=== PATIENT | female | born 1980 | race Caucasian/White ===

== ENCOUNTER 2017-08-10 16:43 | Emergency (ER) | payer OTHER ==
[2017-08-10 16:56] VITALS: BP 129/89
[2017-08-10] MEDS ORDERED: SULFAMETHOX/TMP 800/160 MG 1 TAB PO ONE (17:31)
--- NOTE | 2017-08-10 17:31 | EDPHY ---
H & P Stated Complaint: r 3rd digit inf/concerned about tendon sheath snyovitis Time Seen by Provider: 08/10/17 17:20 HPI/ROS: HPI: This is a 37-year-old female who presents with Chief Complaint: r 3rd digit inf/concerned about tendon sheath snyovitis Location: Right 3rd digit Quality: Infection Duration: 5 days Signs and Symptoms: No bleeding, no radiation, no numbness, no weakness, no tingling, no incontinence, no decreased range of motion, + swelling, + pain, no fever Timing: Worsening Severity: Moderate Context: Patient is right-hand dominant, presents from urgent care with concerns of right 3rd finger infection. Patient reports that she trimmed her cuticles at home and within 24 hr developed redness at the inferior nail bed. She now has swelling and redness in the area. She reports that is tender to touch. Denies discharge/paresthesias/weakness/numbness. Patient reports that she has full range of motion. Tetanus is current. Modifying Factors: None Comment: ROS: see HPI Constitutional: No fever, no chills, no weight loss Eyes: No blurred vision Respiratory: No shortness of breath, no cough Cardiovascular: No chest pain Gastrointestinal: No nausea, no vomiting no diarrhea Genitourinary: No dysuria Extremities: No myalgias Neurologic: No weakness, no numbness Skin: No rashes Hematologic: No bruising, no bleeding MEDICAL/SURGICAL/SOCIAL HISTORY: Medical history: Generally healthy. Does not take any regular medications. LMP 1-7 days ago. Surgical history: Denies Social history: Nonsmoker. CONSTITUTIONAL: Extremely healthy middle-aged white female, nontoxic appearance , awake and alert, no obvious distress HEENT: Atraumatic and normocephalic. EXTREMITIES: 2/2 pulses, strength 5/5, right 3rd digit proximal nail bed shows induration and fluctuance. Tender to palpation. DIP/PIP/MCP flexion/extension intact with good light touch sensation. no deformities, no clubbing, no cyanosis or edema. NEUROLOGICAL: no focal neuro deficits. GCS 15. Light touch sensation intact. SKIN: Warm and dry, no rash. Good capillary refill. Source: Patient Exam Limitations: No limitations - Personal History LMP (Females 10-55): 1-7 Days Ago Current Tetanus Diphtheria and Acellular Pertussis (TDAP): Yes - Medical/Surgical History Hx Asthma: Yes Hx Chronic Respiratory Disease: No Hx Diabetes: No Hx Cardiac Disease: No Hx Renal Disease: No Hx Cirrhosis: No Hx Alcoholism: No Hx HIV/AIDS: No Hx Splenectomy or Spleen Trauma: No Other PMH: denies - Social History Smoking Status: Never smoked Constitutional: Initial Vital Signs Temperature (C) 36.4 C 08/10/17 16:53 Heart Rate 79 08/10/17 16:53 Respiratory Rate 18 08/10/17 16:53 Blood Pressure 129/89 H 08/10/17 16:53 O2 Sat (%) 98 08/10/17 16:53 O2 Delivery Mode Room Air Allergies/Adverse Reactions: Penicillins Allergy (Verified 08/10/17 16:53) Home Medications: Medication Instructions Recorded ALBUTEROL SULFATE 08/10/17 Sulfamethox/Tmp 800/160 mg 1 tab PO BID #14 tab 08/10/17 [Bactrim Ds] Medical Decision Making Procedures: Procedure: Abscess drainage. The patient's abscess was located on the right middle finger proximal nail fold. The area was anesthetized using 3 mL of 1% lidocaine without epinephrine. I obtained verbal consent from the patient to drain the abscess who was informed about the possibility of bleeding and pain. The abscess was incised with 18 gauge needle and 2 mL amount of purulent drainage was expressed. I irrigated the wound, bacitracin clean sterile dressing applied. The patient tolerated the procedure well. The procedure was performed by myself. Procedure: Splint placement. A right 3rd finger aluminum finger splint was applied by the Emergency Room dish technician. After application of the splint I returned and re-examined the patient. The splint was adequately immobilizing the joint and distal to the splint the patient's circulation and sensation was intact. ED Course/Re-evaluation: Patient given Bactrim due to penicillin allergy. I and D performed with 2 mL of purulent discharge expressed. Scribed with Betadine and normal saline. Bacitracin and clean sterile dressing applied. Placed in aluminum finger splint for 3 days to aid with immobilization and improve healing. No signs of neurovascular compromise/tenting of skin/compartment syndrome/ extremities and joints examined above and below area of concern and are neurovascularly intact. This patient was seen under the supervision of my secondary supervising physician. I evaluated care for this patient independently. Discussed this patient with Dr. Collins who did not see the patient. Differential Diagnosis: Differential diagnosis includes but is not limited to close fist infection, hand cellulitis, hand deep space infection, herpetic sandra, felon, flexor tenosynovitis. Departure - Departure Disposition: Home, Routine, Self-Care Clinical Impression: Paronychia of finger of right hand Condition: Good Instructions: Paronychia (ED) Additional Instructions: Keep the splint dry and in place for 48-72 hours. After 48-72 hours, you may remove the splint and dressing; wash the site daily with mild soap and water; then pat dry. Apply topical antibiotic ointment and cover with clean sterile dressing until fully healed. Take Bactrim twice daily x7 days. Return to the ER immediately if you experience redness, red streaks, have fevers /chills, flu like symptoms, limited range of motion, or any other symptoms that concern you. Referrals: Rajesh Watson DO [Primary Care Provider] - As per Instructions Prescriptions: Sulfamethox/Tmp 800/160 mg [Bactrim Ds] 1 tab PO BID #14 tab
== END 2017-08-10 17:52 | disposition home or self-care (01) ==
PROC: 0H9FXZZ Drainage of Right Hand Skin, External Approach (ICD-10-PCS; principal; 2017-08-10)
DX: L03.011 Cellulitis of right finger (principal); J45.909 Unspecified asthma, uncomplicated
CPT/HCPCS: L3925